=== PATIENT | female | born 1995 | race Caucasian/White ===

== ENCOUNTER 2017-01-21 10:57 | Emergency (ER) | payer OTHER ==
[2017-01-21 11:21] VITALS: BP 118/78
--- NOTE | 2017-01-21 12:14 | UC ---
Throat Pain/Nasal Jose Luis HPI - HPI Summary HPI Summary: FIVE DAYS OF SORE THROAT, FATIGUE, SIUNUS CONGESTION, PRODUCTIVE COUGH WITH YELLOW/GREEN SPUTUM - History of Current Complaint Chief Complaint: UCRespiratory Stated Complaint: COUGH CONGESTION Time Seen by Provider: 01/21/17 11:27 Hx Obtained From: Patient Hx Last Menstrual Period: 01/09/17 Onset/Duration: Lasting Days Severity: Moderate Pain Intensity: 0 Pain Scale Used: 0-10 Numeric Cough: Productive Associated Signs & Symptoms: Positive: Hoarseness, Sinus Discomfort, Nasal Discharge - Epiglottits Risk Factors Epiglottis Risk Factors: Negative - Allergies/Home Medications Allergies/Adverse Reactions: Allergies Allergy/AdvReac Type Severity Reaction Status Date / Time Amoxicillin Allergy Rash Verified 01/21/17 11:17 Penicillins Allergy Rash Verified 01/21/17 11:17 Home Medications: Home Medications Norethindrone Acetate-Ethinyl [Lo Loestrin Fe 1 mg-10 Mcg / 10 Mcg] 1 tab PO DAILY 01/21/17 [History Confirmed 01/21/17] PMH/Surg Hx/FS Hx/Imm Hx Previously Healthy: Yes - Surgical History Surgical History: Yes Surgery Procedure, Year, and Place: Right Radial/Ulnar Fracture Repair - Family History Known Family History: Negative: Respiratory Disease - Social History Occupation: Student Lives: With Family Alcohol Use: Rare Substance Use Type: None Smoking Status (MU): Never Smoked Tobacco - Immunization History Most Recent Influenza Vaccination: December 2016 Review of Systems Constitutional: Negative Skin: Negative Eyes: Negative ENT: Sinus Congestion, Sinus Pain/Tenderness Respiratory: Cough Cardiovascular: Negative Gastrointestinal: Negative Genitourinary: Negative Motor: Negative Neurovascular: Negative Musculoskeletal: Negative Neurological: Negative Psychological: Negative Is Patient Immunocompromised?: No All Other Systems Reviewed And Are Negative: Yes Physical Exam Triage Information Reviewed: Yes Appearance: No Pain Distress, Well-Nourished, Ill-Appearing Vital Signs: Initial Vital Signs Temp 98.8 F 01/21/17 11:12 Pulse 100 01/21/17 11:12 Resp 16 01/21/17 11:12 BP 118/78 01/21/17 11:12 Pulse Ox 99 01/21/17 11:12 Vital Signs Reviewed: Yes Eye Exam: Normal ENT: Positive: Nasal congestion, Nasal drainage, TM bulging, TM dull Dental Exam: Normal Neck exam: Normal Neck: Positive: Supple, Nontender, No Lymphadenopathy Respiratory Exam: Other - COUGH Respiratory: Positive: Chest non-tender, Lungs clear, Normal breath sounds, No respiratory distress, No accessory muscle use Cardiovascular Exam: Normal Cardiovascular: Positive: RRR, No Murmur Abdominal Exam: Normal Musculoskeletal Exam: Normal Neurological Exam: Normal Psychological Exam: Normal Skin Exam: Normal Throat Pain/Nasal Course/Dx - Differential Dx/Diagnosis Differential Diagnosis/HQI/PQRI: Pharyngitis, Sinusitis, Tonsillitis, URI Provider Diagnoses: SINUSITIS; BRONCHITIS Discharge - Discharge Plan Condition: Stable Disposition: HOME Prescriptions: Azithromycin TAB* [Zithromax TAB (Z-JOHN) 250 mg #6 tabs] 250 mg PO DAILY #6 tab Patient Education Materials: Sinusitis (ED) Referrals: [facility] [Outside]
== END 2017-01-21 11:43 | disposition home or self-care (01) ==
LOC: UCCORT 10:57
DX: J32.9 Chronic sinusitis, unspecified (principal); J40 Bronchitis, not specified as acute or chronic; Z88.0 Allergy status to penicillin
CPT/HCPCS: 99212; G0463